=== PATIENT | female | born 1980 | race Caucasian/White ===

== ENCOUNTER 2023-04-20 12:56 | Outpatient (OUT) | payer OTHER, SELFPAY ==
--- NOTE | 2023-04-20 | VEIN_ITS ---
[address] [address] Patient Name: LORENA MEANS MRN: [id number] date: 1980 Sex: F Assigned Patient Location: Current Patient Location: Accession/Order Number: [id number] Exam Date: 04/20/2023 13:39 Report Date: 04/20/2023 14:47 At the request of: TRI WOLF Procedure: VC Endovenous Ablation 1VeinLT EXAMINATION: VC Endovenous Ablation 1VeinLT HISTORY: Pain due to varicose veins of bilateral legs I83.813 The risks and benefits of the procedure had been previously discussed, and were rediscussed at length. Informed written consent was obtained. Jovita Parmar RN and Luli Duff RDMS assisted. Time out procedure was performed. The left lower extremity was prepared and draped in the usual sterile fashion to allow knee flexion in the sterile field. Duplex ultrasound probe was draped in a sterile cover, sterile transmission gel was used. Venous mapping was performed with the areas of dilation and large tributaries marked. The total length was 21 cm from the entry mid-upper thigh to 3 cm below the saphenofemoral junction. The diameter of the greater saphenous vein ranged from 7 mm. A 30 gauge needle and 1% buffered lidocaine was used to anesthetize the entry site. A 4 mm incision was made with a scalpel and the saphenous vein was entered percutaneously under direct ultrasound guidance with a micropuncture set, a single stick was successful in gaining access. A micro-guide wire was inserted and the needle removed. A micro-set including a dilator was inserted over the microwire and the needle and dilator were removed. A guide wire was inserted through the micro-set and guided through the saphenous vein to the saphenofemoral junction. The dilator was removed and an introducer sheath was inserted over the wire until the end of the sheath entered the saphenofemoral junction. The dilator and wire were removed and the 600 micron fiber was introduced and placed and positioned so that it extended beyond the sheath and was 3 cm distal to the saphenofemoral femoral junction. Final position of the fiber was determined by ultrasound guidance and duplex imaging. Tumescent anesthetic was delivered by ultrasound guidance. 150 cc of fluid was delivered along the entire course of the saphenous vein. The solution consisted of 1000 cc of normal saline with 40 mL of 1% lidocaine and 20 mL of sodium bicarbonate. A final positioning check was made. The energy source was turned on by means of the foot pedal and the fiber and sheath were withdrawn. The total number of Joules delivered was 963. The laser was active for one and 20seconds under continuous pulse, average laser use of 8 J. Laser start time 1:54 PM, 04/20/2023. Laser stop time 1:56 PM, 04/20/2023. A duplex ultrasound revealed compressibility and flow at the saphenofemoral junction immediately after the procedure. Hemostasis at the access site was achieved. The skin incision of the saphenous vein was closed with a 4 x 4. A compression stocking was applied. Postop instructions were given. A follow up appointment was recommended and scheduled. The patient tolerated the procedure well. Electronically authenticated by: JOSE VOSS Date: 04/20/2023 14:47
[2023-04-20] MEDS: LIDOCAINE HCL 10 ML, SODIUM BICARBONATE 1 MEQ INJ (14:08)
[2023-04-20] MEDS: 0.9 % SODIUM CHLORIDE 500 ML, LIDOCAINE HCL 20 ML, SODIUM BICARBONATE 10 MEQ INJ (14:11)
== END 2023-04-20 12:57 | disposition home or self-care (01) ==
LOC: VC 12:57
PROVIDERS: PCP Radiology Diagnostic Radiology; Visit Provider Radiology Diagnostic Radiology
DX: I83.813 Varicose veins of bilateral lower extremities with pain (principal); I80.02 Phlebitis and thrombophlebitis of superficial vessels of left lower extremity
CPT/HCPCS: 36478

== ENCOUNTER 2023-04-25 13:58 | Outpatient (OUT) | payer OTHER, SELFPAY ==
--- NOTE | 2023-04-25 14:02 | VEIN_ITS ---
Patient: LORENA MEANS Exam Date: 04/25/2023 : 1980 Gender:F Ordering : DR TRI WOLF M.D. Admission #: [id number] Family : Order #: [id number] CLICK HERE TO VIEW EXAM RADIOLOGY REPORT PROCEDURE: VC EXT VENOUS LT LIMITED COMPARISON: None. INDICATIONS: I80.02 Phlebitis of superficial veins of lt lower extremity TECHNIQUE: Lower extremity giraldo scale and Duplex Doppler evaluation of the deep venous system from the inguinal ligament through the calf veins. FINDINGS: REGION: Left lower extremity. THROMBI: Negative for DVT. Heat induced thrombus in AASV 1.1 cm from SFJ and extends to mid thigh at insert. COMPRESSIBILITY: Non-compressible segments. FLOW: Areas of no flow. OTHER: Varicose veins remain. CONCLUSION: 1. Successful post ablation occlusion of left anterior accessory saphenous vein Dictated by: Vincent Crowder M.D. on 04/25/2023 at 15:14 Approved by: Vincent Crowder M.D. on 04/25/2023 at 15:16
--- NOTE | 2023-04-25 14:02 | VEIN_ITS ---
Patient: LORENA MEANS Exam Date: 04/25/2023 : 1980 Gender:F Ordering : DR TRI WOLF M.D. Admission #: [id number] Family : Order #: [id number] CLICK HERE TO VIEW EXAM RADIOLOGY REPORT PROCEDURE: [facility] EST LMTD VEIN CENTER - OFFICE VISIT FOLLOW UP COMPARISON: None. PROGRESS NOTES: The patient reports that mild postprocedural tenderness within left thigh, and mild bruising. There has been interval reduction in varicosities. The patient has followed our recommendations to walk 20-30 minutes once or twice per day since the procedure. Physical exam demonstrates mild bruising; no evidence of infection. Slight decrease in varicosities of the anterior left thigh. Persistent varicosities it are identified along the left thigh. Review of the ultrasound performed the same day demonstrates occlusive thrombus extending throughout the treated vein, see separate report, consistent with a successful ablation. No thrombus extending into or beyond the saphenofemoral junction. The patient expressed a desire to proceed with treatment of incompetent branch saphenous veins. The patient was informed that treatment was a process and would require approximately 1-2 procedures/sessions. VEIN/[facility] Facility EST LMTD IMPRESSION: 1. Successful ablation of the left anterior accessory saphenous vein 2. Persistent incompetent varicose veins and left leg symptoms PLAN: Microfoam chemical ablation of incompetent branch saphenous varicosities of the left leg. Nurse notes, history and physical were reviewed and confirmed, see attached forms. The nurse was present throughout the physical exam and consultation Dictated by: Vincent Crowder M.D. on 04/25/2023 at 15:16 Approved by: Vincent Crowder M.D. on 04/25/2023 at 15:19
== END 2023-04-25 13:59 | disposition home or self-care (01) ==
LOC: VC 14:01
PROVIDERS: PCP Radiology Diagnostic Radiology; Visit Provider Radiology Diagnostic Radiology
DX: I80.02 Phlebitis and thrombophlebitis of superficial vessels of left lower extremity (principal); I83.892 Varicose veins of left lower extremity with other complications
CPT/HCPCS: 93971; G0463

== ENCOUNTER 2023-04-27 14:01 | Outpatient (OUT) | payer OTHER, SELFPAY ==
--- NOTE | 2023-04-27 | VEIN_ITS ---
[address] [address] Patient Name: LORENA MEANS MRN: [id number] date: 1980 Sex: F Assigned Patient Location: Current Patient Location: Accession/Order Number: [id number] Exam Date: 04/27/2023 14:12 Report Date: 04/27/2023 15:22 At the request of: TRI WOLF Procedure: VC INJ Foam Sclerosant WUS OUTSIDE MACHINIST HELPER PROCEDURE: VC INJ Foam Sclerosant WUS OUTSIDE MACHINIST HELPER HISTORY: Pain due to varicose veins of bilateral legs I83.813 Pre-operative Diagnosis: CEAP class [C3 venous insufficiency with pain, tenderness, edema and incompetent branch saphenous vein(s), chronic venous insufficiency left leg secondary to venous incompetence Post-operative Diagnosis: CEAP class C3 venous insufficiency with pain, tenderness, edema and incompetent branch saphenous vein(s), chronic venous insufficiency left leg secondary to venous incompetence Procedure Performed: 1. Ultrasound-guided microfoam chemical ablation with Varithenaregistered 2. Intraoperative ultrasound guidance Physician: Vincent Crowder M.D. Anesthesia: None Indications for Procedure: 43 year old female. Symptoms including lower extremity aching, swelling, dilated bulging veins for many years despite conservative medical therapy including medical compression stockings, exercise and analgesics. Prior procedures include Microfoam chemical ablation. Multiple incompetent varicosities of the left leg. Duplex scan showed reflux and enlarged diameters up to 3 mm. The patient underwent informed consent including management options where the complications of infection, bleeding, pain, and skin injury were discussed. Particular attention was spent discussing thrombus extension and deep vein thrombosis as well as the possibility of pulmonary embolus and treatment with oral or injectable blood thinners. Procedure: The patient walked to the procedure room. All applicable staff donned appropriate apparel. A procedure timeout was performed to confirm correct patient, correct extremity, correct procedure, and correct room set-up including presence of all applicable supplies, devices, and drugs. A duplex ultrasound, performed by myself confirmed the location and incompetence of branch saphenous varicosities and their course was marked on the skin together with the dilated tributaries. The extent of treatment of the vein and the associated varicosities was determined through ultrasound mapping. The skin was prepped and then punctured with a butterfly needle and advanced under ultrasound guidance. The Varithenaregistered canister was activated and the canister was primed and purged as required in the instructions for use. Varithenaregistered was drawn into a sterile syringe. Varithenaregistered was slowly administered at 0.5-1.0 cc/second with close observation by ultrasound of its course in the vessels. Total volume utilized was: 8 mL (5 mL within a 3 mm incompetent varicosity of the distal medial upper leg; 3 mL within an incompetent 3 mm varicosity of the mid medial upper leg). Following administration of Varithenaregistered the leg was elevated and the patient was asked to repeatedly dorsiflex the ankle to limit flow of Varithenaregistered into perforating veins. Once appropriate spasm had been confirmed in the treated veins, the vascular catheter was removed from the leg and light pressure was applied over the puncture site for hemostasis. The common femoral and deep superficial veins were then evaluated for flow and compressibility prior to dressing placement. The lower extremity was kept elevated at 45 degrees above the horizontal and cording material was applied over the saphenous segments and tributaries to allow for eccentric compression over the target vessels including the targeted saphenous vein(s). A multilayer dressing was applied consisting of foam pads, coban and thigh-high 20-30 mm Hg compression elastic support hose were placed on the patient. The leg was lowered only after compression had been applied and the patient was immediately ambulatory. The patient ambulated 10 minutes under supervision and was without apparent concerns at time of release. Post-care instructions include advising patient to keep post-treatment bandages in place and dry for 48 hours, avoid extended periods of inactivity, avoid heavy exercise for one week, wear compression stockings on the treated leg continuously for two weeks, to walk daily for 10 minutes over the next month. The patient was instructed to take an anti-inflammatory medicine as needed and to follow up for color duplex scan of the Saphenous veins, the treated branch saphenous varicosities, the adjacent deep veins, and additional treatment within 7 days. PERSONNEL: Cale King RN Electronically authenticated by: VINCENT CROWDER Date: 04/27/2023 15:22
== END 2023-04-27 14:02 | disposition home or self-care (01) ==
LOC: VC 14:01
PROVIDERS: PCP Radiology Diagnostic Radiology; Visit Provider Radiology Diagnostic Radiology
DX: I83.813 Varicose veins of bilateral lower extremities with pain (principal)
CPT/HCPCS: 36466

== ENCOUNTER 2023-05-03 07:35 | Outpatient (OUT) | payer OTHER, SELFPAY ==
--- NOTE | 2023-05-03 07:37 | VEIN_ITS ---
Patient: LORENA MEANS Exam Date: 05/03/2023 : 1980 Gender:F Ordering : DR NITO PINEDA M.D. Admission #: [id number] Family : Order #: [id number] CLICK HERE TO VIEW EXAM RADIOLOGY REPORT PROCEDURE: [facility] EST LMTD VEIN CENTER - OFFICE VISIT FOLLOW UP COMPARISON: [facility], 04/25/2023. PROGRESS NOTES: The patient reports no significant problems following micro foam chemical ablation of the left leg. The patient has worn her compression stocking the patient does complain of right leg itching. The patient has followed our recommendations to walk 20-30 minutes once or twice per day since the procedure. Physical exam demonstrates a few scattered thrombosed varicose veins. No erythema, bruising or ulceration. No evidence of cellulitis or thrombophlebitis Review of the ultrasound performed the same day demonstrates occlusive thrombus extending throughout the treated left leg varicose veins. No residual varicose veins on the left leg. The patient expressed a desire to proceed with treatment of incompetent right leg varicose veins. VEIN/[facility] EST TD IMPRESSION: 1. Successful ablation of incompetent left leg varicose veins 2. Persistent incompetent right leg varicose veins PLAN: Micro foam chemical ablation of incompetent right leg varicose veins Nurse notes, history and physical were reviewed and confirmed, see attached forms. The nurse was present throughout the physical exam and consultation Dictated by: Nito Pineda MD on 05/03/2023 at 08:09 Approved by: Nito Pineda MD on 05/03/2023 at 08:13
--- NOTE | 2023-05-03 07:37 | VEIN_ITS ---
Patient: LORENA MEANS Exam Date: 05/03/2023 : 1980 Gender:F Ordering : DR NITO PINEDA M.D. Admission #: [id number] Family : Order #: [id number] CLICK HERE TO VIEW EXAM RADIOLOGY REPORT PROCEDURE: VC EXT VENOUS LT LIMITED COMPARISON: VC EXT VENOUS LT LIMITED, 04/25/2023. INDICATIONS: I80.02 Phlebitis of superficial veins of lt lower extremity TECHNIQUE: Lower extremity giraldo scale and Duplex Doppler evaluation of the deep venous system from the inguinal ligament through the calf veins. FINDINGS: REGION: Left lower extremity. THROMBI: Negative for DVT. Varithena induced thrombus at dist/med thigh and mid/med calf. COMPRESSIBILITY: Noncompressibility corresponding to thrombus FLOW: Absent flow corresponding to thrombus OTHER: No patent varicose veins remain. CONCLUSION: Post ablation occlusion of treated left leg varicose veins Dictated by: Nito Pineda MD on 05/03/2023 at 07:55 Approved by: Nito Pineda MD on 05/03/2023 at 07:57
== END 2023-05-03 07:36 | disposition home or self-care (01) ==
LOC: VC 07:36
PROVIDERS: PCP Radiology Diagnostic Radiology; Visit Provider Radiology Diagnostic Radiology
DX: I80.02 Phlebitis and thrombophlebitis of superficial vessels of left lower extremity (principal)
CPT/HCPCS: 93971; G0463

== ENCOUNTER 2023-05-06 09:01 | Outpatient (OUT) | payer OTHER, SELFPAY ==
--- NOTE | 2023-05-06 | VEIN_ITS ---
The [address] [address] Patient Name: LORENA MEANS MRN: [id number] date: 1980 Sex: F Assigned Patient Location: Current Patient Location: Accession/Order Number: [id number] Exam Date: 05/06/2023 09:05 Report Date: 05/06/2023 11:06 At the request of: TRI WOLF Procedure: VC INJ Foam Sclerosant WUS RIBBON BLOCKER PROCEDURE: VC INJ Foam Sclerosant WUS RIBBON BLOCKER COMPARISON: None. HISTORY: Pain due to varicose veins of bilateral legs I83.813 Pre-operative Diagnosis: CEAP class C2 venous insufficiency with pain, tenderness, edema and incompetent varicose veins and venous insufficiency right leg secondary to venous incompetence Post-operative Diagnosis: CEAP class C2 venous insufficiency with pain, tenderness, edema and incompetent varicose veins and venous insufficiency right leg secondary to venous incompetence Procedure Performed: 1. Ultrasound-guided microfoam chemical ablation with Varithenaregistered 2. Intraoperative ultrasound guidance Anesthesia: None Indications for Procedure: 43-year-old female who presents with incontinence the right leg varicose veins with pain and swelling. The patient failed medical therapy including medical compression stockings, exercise and analgesics. Prior procedures include endovenous laser ablation and micropuncture localization. Multiple incompetent varicosities of the right leg. Duplex scan showed reflux and enlarged diameters up to 4 mm. The patient underwent informed consent including management options where the complications of infection, bleeding, pain, and skin injury were discussed. Particular attention was spent discussing thrombus extension and deep vein thrombosis as well as the possibility of pulmonary embolus and treatment with oral or injectable blood thinners. Procedure: The patient walked to the procedure room. All applicable staff donned appropriate apparel. A procedure timeout was performed to confirm correct patient, correct extremity, correct procedure, and correct room set-up including presence of all applicable supplies, devices, and drugs. A duplex ultrasound, performed by myself confirmed the location and incompetence of incompetent varicosities and their course was marked on the skin together with the dilated tributaries. The extent of treatment of the vein and the associated varicosities was determined through ultrasound mapping. The skin was prepped and then punctured with a butterfly needle and advanced under ultrasound guidance. The Varithenaregistered canister was previously activated and the canister was primed and purged as required in the instructions for use. Varithenaregistered was drawn into a sterile syringe. Varithenaregistered was slowly administered at 0.5-1.0 cc/second with close observation by ultrasound of its course in the vessels. The following injections were made: 4 cc injected into a 4 mm varicose vein anterior lateral distal right thigh 2 cc injected into a 4 mm varicose vein medial distal right thigh 2 cc injected into a 3 mm varicose vein mid lateral right thigh Total volume of 8 cc Following administration of Varithenaregistered the leg was elevated and the patient was asked to repeatedly dorsiflex the ankle to limit flow of Varithenaregistered into perforating veins. Once appropriate spasm had been confirmed in the treated veins, the vascular catheter was removed from the leg and light pressure was applied over the puncture site for hemostasis. The common femoral and deep superficial veins were then evaluated for flow and compressibility prior to dressing placement. The lower extremity was kept elevated at 45 degrees above the horizontal and cording material was applied over the saphenous segments and tributaries to allow for eccentric compression over the target vessels including the targeted saphenous vein(s). A multilayer dressing was applied consisting of foam pads, coban and thigh-high 20-30 mm Hg compression elastic support hose were placed on the patient. The leg was lowered only after compression had been applied and the patient was immediately ambulatory. The patient ambulated 10 minutes under supervision and was without apparent concerns at time of release. Post-care instructions include advising patient to keep post-treatment bandages in place and dry for 48 hours, avoid extended periods of inactivity, avoid heavy exercise for one week, wear compression stockings on the treated leg continuously for two weeks, to walk daily for 10 minutes over the next month. The patient was instructed to take an anti-inflammatory medicine as needed and to follow up for color duplex scan of the Saphenous veins, the treated branch saphenous varicosities, the adjacent deep veins, and additional treatment within 7 days. PERSONNEL: Cale King RN Electronically authenticated by: TRI WOLF Date: 05/06/2023 11:06
== END 2023-05-06 09:02 | disposition home or self-care (01) ==
LOC: VC 09:02
PROVIDERS: PCP Radiology Diagnostic Radiology; Visit Provider Radiology Diagnostic Radiology
DX: I83.813 Varicose veins of bilateral lower extremities with pain (principal)
CPT/HCPCS: 36466

== ENCOUNTER 2023-05-10 14:01 | Outpatient (OUT) | payer OTHER, SELFPAY ==
--- NOTE | 2023-05-10 14:02 | VEIN_ITS ---
Patient: LORENA MEANS Exam Date: 05/10/2023 : 1980 Gender:F Ordering : DR TRI WOLF M.D. Admission #: [id number] Family : Order #: [id number] CLICK HERE TO VIEW EXAM RADIOLOGY REPORT PROCEDURE: [facility] EST LMTD VEIN CENTER - OFFICE VISIT FOLLOW UP COMPARISON: [facility] EST TD, 05/03/2023. PROGRESS NOTES: The patient reports improvement in leg symptoms. There has been interval reduction in varicosities. The patient has followed our recommendations to walk 20-30 minutes once or twice per day since the procedure. Physical exam demonstrates decrease in varicosities of the leg. Persistent small spider veins are identified along the legs bilaterally. Review of the ultrasound performed the same day demonstrates occlusive thrombus extending throughout the treated vein(s), see separate report, consistent with a successful ablation. No thrombus extending into or beyond the saphenofemoral junction. VEIN/[facility] EST LMTD IMPRESSION: 1. Successful ablation of the treated right lower extremity branch saphenous vein(s). No remaining dilated, incompetent branch saphenous varicosities. 2. Persistent small spider veins bilaterally. PLAN: 1. No additional treatment plan at this time. 2. Patient is considering self pay sclerotherapy and will follow-up in future. Nurse notes, history and physical were reviewed and confirmed, see attached forms. The nurse was present throughout the physical exam and consultation Dictated by: Vincent Crowder M.D. on 05/10/2023 at 14:51 Approved by: Vincent Crowder M.D. on 05/10/2023 at 14:53
--- NOTE | 2023-05-10 14:02 | VEIN_ITS ---
Patient: LORENA MEANS Exam Date: 05/10/2023 : 1980 Gender:F Ordering : DR TRI WOLF M.D. Admission #: [id number] Family : Order #: [id number] CLICK HERE TO VIEW EXAM RADIOLOGY REPORT PROCEDURE: VC EXT VENOUS RT LMTD COMPARISON: None. INDICATIONS: I80.01 Phlebitis of superficial veins of rt lower extremity TECHNIQUE: Lower extremity giraldo scale and Duplex Doppler evaluation of the deep venous system from the inguinal ligament through the calf veins. FINDINGS: REGION: Right lower extremity. THROMBI: Negative for DVT. Varithena induced thrombus visualized at distal/medial thigh, mid/lateral thigh, and distal/lateral thigh. COMPRESSIBILITY: Non-compressible segments. FLOW: Areas of no flow. OTHER: CONCLUSION: 1. Successful post ablation occlusion of treated right leg incompetent branch saphenous varicosities. Dictated by: Vincent Crowder M.D. on 05/10/2023 at 14:51 Approved by: Vincent Crowder M.D. on 05/10/2023 at 14:51
== END 2023-05-10 14:02 | disposition home or self-care (01) ==
LOC: VC 14:01
PROVIDERS: PCP Radiology Diagnostic Radiology; Visit Provider Radiology Diagnostic Radiology
DX: I80.01 Phlebitis and thrombophlebitis of superficial vessels of right lower extremity (principal); I83.813 Varicose veins of bilateral lower extremities with pain; I78.1 Nevus, non-neoplastic
CPT/HCPCS: 93971; G0463

== ENCOUNTER 2024-08-27 13:57 | Outpatient (OUT) | payer OTHER, SELFPAY ==
--- NOTE | 2024-08-27 08:11 | VEINCLINIC_ITS ---
Vital Signs 08/27/24 14:19 Height 5 ft 6 in Weight 87.997 kg BMI 31.3 BP 136/72 BP Location Left Brachial BP Position Sitting BP Cuff Size Adult BP Source Manual Cuff Respiration 16 Pulse 78 Pulse Source Monitor Pulse Oximetry (%) 99 Oxygen Delivery Method Room Air Comment The patient's blood pressure is elevated. Varicose Veins Irma is a 44 year old female in this day with c/o right upper leg itching and burning. Patient has been treated in this practice as recent as 2022 with sclerotherapy and microfoam chemical ablation. Patient has also been treated in the past with laser ablation. Patient continues to wear bilateral leg knee high compression stockings. Nito Harding MD personally performed the services described in this documentation, as scribed by Cale King RN in my presence and it is both accurate and complete. Cale Harding RN, am scribing for, and in the presence of, Dr. Nito Pineda and in the presence of the patient. thigh: left, knee: bilateral, calf: bilateral, ankle: bilateral and hendricks: bilateral aching and dull 3 since 2018 Worsened in recent months: Yes standing elevating extremities, compression stockings and exercise Reports limb pain and edema History of lower extremity trauma: No Superficial thrombophlebitis: Yes Family history of varicose veins: yes Has patient had previous lower extremity venous surgery: Yes Patient has previously received the following treatment(s) for lower extremity varicose veins: Reports vein ablation, sclerotherapy and foam therapy Does patient have a history of : no Does patient intend to have future pregnancies: no Has patient had lower extremity venous scan with relux testing: Yes Support hose used: Yes Problems walking or doing physical activity: Yes How does it affect you: pain and itching awakens patient at night Do you walk much: Yes Do you stand much: Yes Review of Systems ROS Narrative Nito Harding MD personally performed the services described in this documentation, as scribed by Cale King RN in my presence and it is both accurate and complete. Cale Harding RN, am scribing for, and in the presence of, Dr. Nito Pineda and in the presence of the patient. Status of ROS 10 or more systems reviewed and unremark able except as noted in history and below Cardiovascular Reports: edema Integumentary/Breast Reports: itching, skin pain and skin tenderness PFSH PFSH Medical History (Updated 08/27/24 @ 08:43 by Cale King) Depression ?F32.A - Depression, unspecified (ICD-10) Migraine ?G43.909 - Migraine, unspecified, not intractable, without status migrainosus (ICD-10) Pain due to varicose veins of lower extremity ?I83.819 - Varicose veins of unspecified lower extremity with pain (ICD-10) Surgical History (Updated 08/27/24 @ 08:46 by Cale King) S/P sclerotherapy of varicose veins ?Z98.890 - Other specified postprocedural states (ICD-10) ?Z86.79 - Personal history of other diseases of the circulatory system (ICD- 10) Status post laser ablation of incompetent vein ?Z98.890 - Other specified postprocedural states (ICD-10) Family History (Updated 08/27/24 @ 08:42 by Cale King) Other Family history of hypertension Family history of stroke Pain due to varicose veins of both lower extremities Social History (Updated 08/27/24 @ 08:40 by Cale King) Within the past year, how often did you have a drink containing alcohol: monthly or less Smoking status: Never smoker Non-prescribed substance use: denies use Meds Home Medications and Allergies Home Medications ?Medication ?Instructions ?Recorded ?Confirmed ?Type gabapentin 300 mg capsule 300 mg PO BID 08/27/24 08/27/24 History ibuprofen 200 mg tablet 200 mg PO TID-QID PRN pain 08/27/24 08/27/24 History norethin-ethinyl estradiol-iron 1 tab PO DAILY 08/27/24 08/27/24 History 0.4 mg-35 mcg(21)/75 mg(7) chew tablet ([place] Fe) Allergies Allergy/AdvReac Type Severity Reaction Status Date / Time No Known Drug Allergies Allergy Verified 08/27/24 08:47 Exam Narrative Exam Narrative: INito MD personally performed the services described in this documentation, as scribed by Cale King RN in my presence and it is both accurate and complete. ICale RN, am scribing for, and in the presence of, Dr. Nito Pineda and in the presence of the patient. Constitutional Documenting provider has reviewed patient's vital signs: yes Common normals: oriented x3 Nutritional appearance: overweight Lymph Lymphatic: no lymphedema noted Cardio Peripheral pulses: posterior tibial pulses present and dorsalis pedis pulses present Extremity Common normals: normal capillary refill General: edema Right lower extremity: lower leg Right lower leg: inspection and palpation Left lower extremity: lower leg Left lower leg: inspection and palpation Neuro Common normals: oriented x3 Results Additional Findings Additional findings: Bilateral leg reflux u/s reveals moderate reflux in a short segment of the right SSV. Nito Harding MD personally performed the services described in this documentation, as scribed by Cale King RN in my presence and it is both accurate and complete. Cale Harding RN, am scribing for, and in the presence of, Dr. Nito Pineda and in the presence of the patient. Assessment and Plan Assessment and Plan (1) Pain due to varicose veins of lower extremity: Plan Patient to continue use of bilateral leg knee high compression stockings, exercise, rest, and elevation of bilateral legs/feet. initiate gabapentin 300mg p.o. bid [id number] Patient to f/u in future as necessary. Nito Harding MD personally performed the services described in this documentation, as scribed by Cale King RN in my presence and it is both accurate and complete. Cale Harding RN, am scribing for, and in the presence of, Dr. Nito Pineda and in the presence of the patient.
--- NOTE | 2024-08-27 08:15 | W.VEIN ---
Discharge Plan Discharge Disposition: Home, Self-Care Plan of Treatment: f/u in future as necessary Print Language: Sinhala Discharge Date/Time: 08/27/24 16:04
--- NOTE | 2024-08-27 13:58 | VEIN_ITS ---
Patient Name: LORENA MEANS MR#: [id number] : 1980 Exam Date: 08/27/2024 Ordering Doctor: DR NITO PINEDA M.D. RADIOLOGY REPORT PROCEDURE: [facility] - OFFICE VISIT INITIAL COMPARISON: None. PROGRESS NOTES: 44-year-old female with a long history of bilateral varicose veins. The patient has been treated since 2019 with multiple different procedures. The patient presents today with right lateral thigh pain, itching and burning and numbness. The patient has had symptoms for several weeks with occasional sharp pain. No improvement with compression stockings or oral analgesics. The patient denies any signs and symptoms to suggest arterial ischemia. The patient describes a family history hypertension stroke and varicose veins. The patient drinks alcohol monthly or less. The patient has never smoked. No substance abuse. Current medications are control pill and ibuprofen. After review of nurse notes, history and physical exam I discussed at length possible reasons for her right lateral thigh symptoms which could be related to nerve rim muscular skeletal issues as there are no significant vein problems in this region. Ultrasound venous reflux study performed the same day was discussed at length with the patient. The report demonstrates reflux in both small saphenous veins however no dilatation is observed. No vein treatment was recommended. As the patient has had some improvement in nerve symptoms in the past with gabapentin, and desired to try it again , gabapentin was prescribed. PHYSICAL EXAM: The right leg demonstrates scattered reticular and spider veins. No subcutaneous edema, active ulceration or skin discoloration. The left leg demonstrates a few scattered varicose veins. Reticular and spider veins. No subcutaneous edema, active ulceration or skin discoloration. Both thighs, legs and feet were symmetrically warm to the touch. Good posterior tibial and dorsalis pedis pulses were present bilaterally. VEIN/ Facility EST Comprehensive IMPRESSION: 1. No significant venous insufficiency 2. No significant lower extremity varicose veins 3. No significant lower extremity subcutaneous edema 4. Right lateral thigh neuropathic or musculoskeletal pain, in light of oral analgesics not being effective at the pain control I suspect neuropathic etiology. 5. CEAP: C2, Ep, As, Pr PLAN: 1. Gabapentin 300 milligrams b.i.d. For 1 month 2. Follow-up in 1 month Nurse notes, history and physical were reviewed and confirmed, see attached forms. The nurse was present throughout the physical exam and consultation Dictated by: Nito Pineda MD on 08/27/2024 at 15:59 Approved by: Nito Pineda MD on 08/27/2024 at 16:24
--- NOTE | 2024-08-27 13:58 | VEIN_ITS ---
Patient Name: LORENA MEANS MR#: [id number] : 1980 Exam Date: 08/27/2024 Ordering Doctor: DR NITO PINEDA M.D. RADIOLOGY REPORT PROCEDURE: VC EXT VENOUS REFLUX CAROLYN LMTD COMPARISON: None. INDICATIONS: I83.813 Bilateral painful varicose veins TECHNIQUE: Duplex imaging of the lower extremity to assess the deep and superficial venous system for the presence of deep or superficial venous incompetence and to document the location and severity of disease. The study includes evaluation of the great saphenous vein (GSV), anterior accessory saphenous vein (AASV) and small saphenous vein (SSV). Patient scanned in reverse Trendelenburg and standing. FINDINGS: RIGHT LOWER EXTREMITY: Saphenofemoral Junction Reflux: Yes 8.9mm 3.2 sec GSV: Diam (mm) Reflux/ Time (sec) Proximal Thigh N/A Mid Thigh N/A Distal Thigh N/A Prox Calf N/A Mid Calf N/A Saphenopopliteal Junction Reflux: 3.7mm Yes 0.5 SSV: Proximal Calf 5.6 Yes 0.3 Mid Calf 2.7 Yes 4.5 AASV: Not present Thrombi: No acute or chronic thrombus. Compressibility: Normal. Flow: Mild deep venous reflux. Preforator: Mid lateral lower leg 3.0 mm with 1.4s reflux. Tech Note: Previously treated GSV. Incompetent varicose vein prox medial calf measures 4.9 mm with 4.8s reflux. Varicose vein distal lateral thigh measures 3.2 mm with 1.0s reflux. LEFT LOWER EXTREMITY: Saphenofemoral Junction Reflux: Yes 8.3 mm 4.6 sec GSV: Diam (mm) Reflux/Time (sec) Proximal Thigh N/A Mid Thigh N/A Distal Thigh N/A Prox Calf N/A Mid Calf N/A Saphenopopliteal Junction Relux: 2.6 mm No SSV: Proximal Calf 3.0 Yes 0.6 Mid Calf 2.8 No AASV: Not present Thrombi: No acute or chronic thrombus. Compressibility: Normal. Flow: Mild deep venous reflux. Digital Content Manager: Prox posterior calf measures 3.2 mm without reflux. Tech Note: Previously treated GSV. No significant varicose veins at this time. CONCLUSION: 1. Moderate reflux in a short segment of the right small saphenous vein, the vein is not dilated 2. Minimal reflux left small saphenous vein Dictated by: Nito Pineda MD on 08/27/2024 at 15:50 Approved by: Nito Pineda MD on 08/27/2024 at 15:52
[2024-08-27 14:19] VITALS: BP 136/72; PULSE 78; O2SAT 99; BMI 31.3
== END 2024-08-27 16:04 | disposition home or self-care (01) ==
LOC: VC 13:58
PROVIDERS: PCP Radiology Diagnostic Radiology; Visit Provider Radiology Diagnostic Radiology
DX: I83.813 Varicose veins of bilateral lower extremities with pain (principal)
CPT/HCPCS: 93970; G0463